=== PATIENT | male | born 1985 | race Caucasian/White ===

== ENCOUNTER 2016-05-08 14:43 | Emergency (ER) | payer MEDICAID ==
[~2016-05-08] VITALS: Ht 172.7 cm; Wt 113.4 kg
[2016-05-08] MEDS ORDERED: PAROXETINE HCL20 MG PO (14:54)
[2016-05-08] MEDS ORDERED: PRILOSEC20 M1 PO (14:55)
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
[2016-05-08] MEDS ORDERED: ZYLOPRIM 100MG100 MG PO (15:38)
[2016-05-08] MEDS ORDERED: COLCRYS0.6 M1 PO (15:38)
[2016-05-08 15:48] LABS: HEMOGLOBIN 16.8 g/dL (14.1-18.0); LYMPH % 32.8 % (10-50)
[2016-05-08 16:13] VITALS: BP 148/78
--- NOTE | 2016-05-09 08:35 | RADIOLOGY REPORT PS360 ---
FOOT-RT-3 VIEWS HISTORY: Pain right great toe and 1st metatarsal ORDERING PHYSICIAN: RENU MODI PATIENT AGE: 31 years COMPARISON: None FINDINGS: Ill-defined intramedullary lucency is present involving the mid and proximal aspect of the proximal phalanx of the great toe. This area measures approximately 15 x 10 mm. No fracture or dislocation. No other significant anomalies. No significant degenerative change. IMPRESSION: Ill-defined intramedullary lucency of the proximal phalanx of the great toe. Etiology is indeterminate. And enchondroma would be the most common lytic lesion in this age group. CT or MRI may be of further value. If the finding is indeed real then, a total body bone scan may be of further value to ensure this does not represent metastatic lesion.
== END 2016-05-08 16:14 | disposition home or self-care (01) ==
LOC: ER 14:43
PROVIDERS: Emergency Medicine
DX: M10.9 Gout, unspecified (principal); Z87.891 Personal history of nicotine dependence; K21.9 Gastro-esophageal reflux disease without esophagitis